=== PATIENT | female | born 1975 | race African-American/Black ===

== ENCOUNTER 2020-09-16 16:20 | Emergency (ER) | payer OTHER ==
[~2020-09-16] VITALS: Ht 170.2 cm; Wt 104.3 kg
[~2020-09-16 16:20] MED LIST: FLEXERIL PO; IBUPROFEN 600600 M1 PO; MULTIVITAMINS1 EAC7 PO; NEXIUM20 M1 PO; NORCO 5-325 TA1 EACH PO; OMEPRAZOLE40 MG PO; PRILOSEC20 MG PO; TRAMADOL 50 MG50 MG PO; ULTRAM 50MG TAB50 MG PO; VALIUM2 MG PO
[2020-09-16] MEDS ORDERED: CYCLOBENZAPRINE5 MG PO (17:05)
[2020-09-16] MEDS ORDERED: NORCO5 PO (17:05)
[2020-09-16 18:00] VITALS: BP 142/88
== END 2020-09-16 18:04 | disposition home or self-care (01) ==
LOC: ER 16:20
DX: M25.511 Pain in right shoulder (principal); M54.5 Low back pain; M54.6 Pain in thoracic spine; Z88.5 Allergy status to narcotic agent; Z88.0 Allergy status to penicillin; Z79.899 Other long term (current) drug therapy; Z90.49 Acquired absence of other specified parts of digestive tract; W10.8XXA Fall (on) (from) other stairs and steps, initial encounter; Y93.89 Activity, other specified; Y92.89 Other specified places as the place of occurrence of the external cause; Y99.9 Unspecified external cause status